=== PATIENT | female | born 1980 | race Caucasian/White ===

== ENCOUNTER 2018-03-10 16:45 | Emergency (ER) | payer OTHER ==
[~2018-03-10] VITALS: Ht 172.7 cm; Wt 82.0 kg
[2018-03-10 16:57] VITALS: BP 148/98
[2018-03-10] MEDS ORDERED: FLUT9.9S NS (17:13)
[2018-03-10] MEDS ORDERED: LEVO750T31 PO (17:13)
--- NOTE | 2018-03-10 17:25 | ED.ADGEN ---
Past History Past Medical History: GERD, Other Past Surgical History: Hysterectomy, Knee Replacement Alcohol Use: None Drug Use: None Adult General Chief Complaint Chief Complaint facial pain [facility] HPI Patient is a 37-year-old female presents with frontal, maxillary sinus pain, and diffuse body aches. Patient has a history of severe chronic recurrent sinus infections which has required surgery and long-term use of antibiotics. Patient states she was unable to get ahold her ENT physician today who usually prescribes an biotics early in the course of her sinus infections. No fever chills, nausea vomiting or sweats. Previous hysterectomy.[] Review of Systems Review of Systems ROS as per HPI [] All other systems were reviewed and found to be within normal limits, except as documented in this note. Allergies Allergies Allergies Coded Allergies Type Severity Reaction Last Updated Verified No Known Drug Allergies 03/10/18 No Physical Exam Physical Exam Constitutional: Well developed, well nourished, no acute distress, non-toxic appearance. [] HENT: Normocephalic, frontal and maxillary sinus ttp, bilateral external ears normal, oropharynx moist, no oral exudates, nose, chromic inflammation. [] Eyes: PERRLA, EOMI, conjunctiva normal. [] Neck: Normal range of motion, no tenderness, supple. [] Cardiovascular:Heart rate regular rhythm, no murmur [] Lungs & Thorax: Bilateral breath sounds clear to auscultation. [] Abdomen: Bowel sounds normal, soft, no tenderness. [] Skin: Warm, dry. [] Back: No tenderness. [] Extremities: No tenderness, no edema. [] Neurologic: Alert and oriented X 3, normal motor function, normal sensory function, no focal deficits noted. [] Psychologic: Affect normal, judgement normal, mood normal. [] Current Patient Data Vital Signs Vital Signs Date Time Temp Pulse Resp B/P (MAP) Pulse Ox O2 Delivery O2 Flow Rate FiO2 03/10/18 16:57 98.2 97 18 100 Room Air EKG EKG [] Radiology/Procedures Radiology/Procedures [] Course & Med Decision Making Course & Med Decision Making Pertinent Labs and Imaging studies reviewed. (See chart for details) [Symptoms consistent with a fever/early sinus infection. Discussed with patient' s risk best events and alternatives of treating with antibiotics. Specifically discussed warning of tendinopathy and high risk of intentional Infection. Patient States that this is the only antibiotic that has helped her in the past. She Appears to Be Very Reasonable Historian. Recommend Contacting ENT on Tuesday for Close Follow-Up.] Final Impression Final Impression [1. Sinus infection 2. Myalgias] Abimael Disclaimer Abimael Disclaimer This electronic medical record was generated, in whole or in part, using a voice recognition dictation system. LIZZIE JUNIOR DO Mar 10, 2018 17:25
== END 2018-03-10 17:19 | disposition home or self-care (01) ==
LOC: ER 16:45
DX: J32.9 Chronic sinusitis, unspecified (principal); M79.1 Myalgia; K21.9 Gastro-esophageal reflux disease without esophagitis
CPT/HCPCS: 99283